=== PATIENT | female | born 1950 | race American Indian/Alaskan Native ===

== ENCOUNTER 2017-06-19 01:04 | Emergency (ER) | payer MEDICARE ==
[2017-06-19 01:24] VITALS: BP 138/74; RESP 16; TEMP 98; O2SAT 98
--- NOTE | 2017-06-19 02:47 | ED PDOC ---
HPI: Psych/Substance Abuse Time Seen by Provider: 06/19/17 01:43 Chief Complaint (Nursing): Palpitations Chief Complaint (Provider): Anxiety History Per: Patient History/Exam Limitations: no limitations Onset/Duration Of Symptoms: Mins ([employer]) Current Symptoms Are (Timing): Gone Now Suicide/Self Injury Attempted (Context): None Modifying Factor(s): None Additional Complaint(s): 67 year old female presents to ED with complaints of a resolved anxiety/panic attack that started [employer] and has a past medical history of anxiety, Hypertension , and arthritis. Patient states that she was overcome about her sister who was affected by the recent hurricane and her daughter's a few years ago, causing symptoms of an anxiety attack. (+) anxiety, diaphoresis, and palpitations. (-) chest pain. Patient confirms that upon arrival to ED, all symptoms have resolved. PCP: Adonis Dupree Past Medical History Reviewed: Historical Data, Nursing Documentation, Vital Signs Vital Signs: Last Vital Signs Temp 98 F 06/19/17 01:21 Pulse 87 06/19/17 01:21 Resp 16 06/19/17 01:21 BP 138/74 06/19/17 01:21 Pulse Ox 98 06/19/17 01:21 - Medical History PMH: Anxiety, Arthritis, HTN Denies: Chronic Kidney Disease - Social History Current smoker - smoking cessation education provided: No Ex-Smoker (has not smoked in the last 12 months): No Alcohol: Other ((+) drinker) Drugs: Denies - Home Medications Home Medications: Ambulatory Orders Medication Instructions Recorded Acetaminophen with Codeine 1 tab PO Q6 PRN #15 tab 07/30/15 [Tylenol with Codeine No. 3 300 mg-30 mg] Naproxen [Naprosyn] 500 mg PO BID #20 tab 07/30/15 - Allergies Allergies/Adverse Reactions: Allergies Allergy/AdvReac Type Severity Reaction Status Date / Time escitalopram [From Lexapro] Allergy RASH Verified 06/19/17 01:20 Review of Systems ROS Statement: Except As Marked, All Systems Reviewed And Found Negative Constitutional: Positive for: Sweats Cardiovascular: Positive for: Palpitations. Negative for: Chest Pain Psych: Positive for: Anxiety Physical Exam - Reviewed Nursing Documentation Reviewed: Yes Vital Signs Reviewed: Yes - Physical Exam Appears: Positive for: Non-toxic, No Acute Distress Head Exam: Positive for: ATRAUMATIC, NORMAL INSPECTION, NORMOCEPHALIC Skin: Positive for: Normal Color, Warm, Dry Eye Exam: Positive for: EOMI, Normal appearance, PERRL ENT: Positive for: Normal ENT Inspection Neck: Positive for: Normal, Painless ROM, Supple Cardiovascular/Chest: Positive for: Regular Rate, Rhythm. Negative for: Murmur Respiratory: Positive for: Normal Breath Sounds. Negative for: Respiratory Distress Gastrointestinal/Abdominal: Positive for: Normal Exam, Soft. Negative for: Tenderness Back: Positive for: Normal Inspection Extremity: Positive for: Normal ROM. Negative for: Deformity Neurologic/Psych: Positive for: Alert, Oriented - Laboratory Results Result Diagrams: 06/19/17 02:54 06/19/17 02:54 - ECG ECG Rhythm: Positive for: Sinus Rhythm Rate: 86 O2 Sat by Pulse Oximetry: 98 (RA) Pulse Ox Interpretation: Normal Medical Decision Making Medical Decision Makin Initial impression: anxiety Initial plan: * Labs * Trop I Patient refused crisis evaluation. [id number] Labs reviewed: no clinically significant abnormalities. Patient is medically stable for discharge. Scribe Attestation: Documented by Dalila Hilliard acting as a scribe for Buck Fernández MD. Scribe Attestation: All medical record entries made by the Scribe were at my direction and personally dictated by me. I have reviewed the chart and agree that the record accurately reflects my personal performance of the history, physical exam, medical decision making, and the department course for this patient. I have also personally directed, reviewed, and agree with the discharge instructions and disposition. Disposition - Clinical Impression Clinical Impression: Anxiety - Disposition Referrals: Adonis Dupree MD [Primary Care Provider] - Disposition: Routine/Home Disposition Time: 03:46 Condition: IMPROVED Additional Instructions: follow up with your primary doctor in 1-2 days return to the ED with any worsening or concerning symptoms Instructions: Anxiety (ED) Forms: [employer] (Swedish)
[2017-06-19 02:51] VITALS: PULSE 86
[2017-06-19 02:58] LABS: BASO % 0.8 % (0.0-2.0); EOS # 0.1 K/uL (0.0-0.7); EOS % 1.9 % (0.0-4.0); HEMATOCRIT 40.3 % (34.0-47.0); LYMPH # 2.1 K/uL (1.0-4.3); LYMPH % 35.3 % (20.0-40.0); MEAN CELL VOLUME 87.9 fl (81.0-99.0); MEAN CORPUSCULAR HEMOGLOBIN 28.6 pg (27.0-31.0); MEAN CORPUSCULAR HGB CONC 32.6 g/dL (33.0-37.0); MEAN PLATELET VOLUME 8.1 fl (7.2-11.7); MONO # 0.6 K/uL (0.0-0.8); MONO % 10.1 % (0.0-10.0); NEUT # 3.1 K/uL (1.8-7.0); NEUT % 51.9 % (50.0-75.0); NRBC % 0.1 % (0.0-0.0); RED CELL DISTRIBUTION WIDTH 14.8 % (11.5-14.5)
[2017-06-19 03:32] LABS: BLOOD UREA NITROGEN 14 mg/dl (7-17); GFR AFRICAN-AMERICAN > 60; GLUCOSE,RANDOM 103 mg/dL (65-105); SODIUM 143 mmol/l (132-148)
[2017-06-19 03:33] LABS: ALB/GLOB RATIO 1.3 (1.0-2.1); ALKALINE PHOSPHATASE 79 U/L (38-126); ALT/SGPT 41 U/L (9-52); AST/SGOT 29 U/L (14-36); BILIRUBIN,TOTAL 0.5 mg/dl (0.2-1.3); CALCIUM 9.8 mg/dL (8.4-10.2); CARBON DIOXIDE 28 mmol/L (22-30); CHLORIDE 104 mmol/L (98-107); POTASSIUM 4.3 MMOL/L (3.6-5.0); TOTAL PROTEIN 8.1 G/DL (6.3-8.2)
== END 2017-06-19 03:53 | disposition home or self-care (01) ==
LOC: H.ER 01:04
DX: F41.9 Anxiety disorder, unspecified (principal)

== ENCOUNTER 2017-12-12 22:33 | Emergency (ER) | payer MEDICARE ==
[2017-12-12 22:40] VITALS: BP 139/81; RESP 16; TEMP 98.3; O2SAT 98
[2017-12-12 23:49] LABS: BASO # 0.1 K/uL (0.0-0.2); BASO % 1.2 % (0.0-2.0); EOS # 0.1 K/uL (0.0-0.7); EOS % 1.2 % (0.0-4.0); HEMOGLOBIN 13.1 g/dL (12.0-16.0); LYMPH # 1.8 K/uL (1.0-4.3); LYMPH % 30.3 % (20.0-40.0); MEAN CELL VOLUME 87.3 fl (81.0-99.0); MEAN CORPUSCULAR HEMOGLOBIN 29.2 pg (27.0-31.0); MEAN CORPUSCULAR HGB CONC 33.5 g/dL (33.0-37.0); MEAN PLATELET VOLUME 7.5 fl (7.2-11.7); MONO # 0.5 K/uL (0.0-0.8); MONO % 7.6 % (0.0-10.0); NEUT # 3.6 K/uL (1.8-7.0); NEUT % 59.7 % (50.0-75.0); RBC 4.49 Mil/uL (3.80-5.20); RED CELL DISTRIBUTION WIDTH 14.9 % (11.5-14.5)
[2017-12-12 23:58] LABS: BLOOD UREA NITROGEN 12 mg/dl (7-17); CALCIUM 9.8 mg/dL (8.4-10.2); GFR AFRICAN-AMERICAN > 60; GFR NON-AFRICAN AMERICAN > 60
--- NOTE | 2017-12-13 00:09 | ED PDOC ---
HPI: Chest Pain Time Seen by Provider: 12/12/17 22:47 Chief Complaint (Nursing): Palpitations Chief Complaint (Provider): chest pain History Per: Patient History/Exam Limitations: no limitations Onset/Duration Of Symptoms: Days (12/12/17) Current Symptoms Are (Timing): Better Associated Symptoms: Other (left arm tingling and dry mouth) Additional Complaint(s): 67 y/o female with past medical history of hypertension, arthritis, and anxiety presents to the ED complaining of chest pain. Report of left arm tingling and dry mouth. Denies nausea and vomiting. PMD: Adonis Dupree Past Medical History Reviewed: Historical Data, Nursing Documentation, Vital Signs Vital Signs: Last Vital Signs Temp 98.3 F 12/12/17 22:37 Pulse 84 12/12/17 22:37 Resp 16 12/12/17 22:37 BP 139/81 12/12/17 22:37 Pulse Ox 98 12/13/17 01:05 - Medical History PMH: Anxiety, Arthritis, HTN Denies: Chronic Kidney Disease - Family History Family History: States: Unknown Family Hx - Home Medications Home Medications: Ambulatory Orders Medication Instructions Recorded Acetaminophen with Codeine 1 tab PO Q6 PRN #15 tab 07/30/15 [Tylenol with Codeine No. 3 300 mg-30 mg] Naproxen [Naprosyn] 500 mg PO BID #20 tab 07/30/15 - Allergies Allergies/Adverse Reactions: Allergies Allergy/AdvReac Type Severity Reaction Status Date / Time escitalopram [From Lexapro] Allergy RASH Verified 12/12/17 22:37 Review of Systems ROS Statement: Except As Marked, All Systems Reviewed And Found Negative ENT: Positive for: Other (dry mouth) Cardiovascular: Positive for: Chest Pain Gastrointestinal: Negative for: Nausea, Vomiting Musculoskeletal: Positive for: Other (left arm tingling and numbness) Physical Exam - Reviewed Nursing Documentation Reviewed: Yes Vital Signs Reviewed: Yes - Physical Exam Appears: Positive for: Well, Non-toxic, No Acute Distress Head Exam: Positive for: ATRAUMATIC, NORMAL INSPECTION, NORMOCEPHALIC Skin: Positive for: Normal Color, Warm, Dry Eye Exam: Positive for: EOMI, Normal appearance, PERRL ENT: Positive for: Normal ENT Inspection Neck: Positive for: Normal, Painless ROM, Supple. Negative for: Decreased ROM, Limited ROM Cardiovascular/Chest: Positive for: Regular Rate, Rhythm. Negative for: Murmur Respiratory: Positive for: Normal Breath Sounds. Negative for: Decreased Breath Sounds, Accessory Muscle Use, Wheezing, Respiratory Distress Gastrointestinal/Abdominal: Positive for: Normal Exam, Bowel Sounds, Soft. Negative for: Tenderness, Guarding, Rebound Back: Positive for: Normal Inspection. Negative for: L CVA Tenderness, R CVA Tenderness Extremity: Positive for: Normal ROM. Negative for: Tenderness, Pedal Edema, Deformity Neurologic/Psych: Positive for: Alert, Oriented (x3), Gait - Laboratory Results Result Diagrams: 12/12/17 23:46 12/12/17 23:46 - ECG O2 Sat by Pulse Oximetry: 98 (RA) Pulse Ox Interpretation: Normal Medical Decision Making Medical Decision Making: Time: 22:48 Initial Impression: 67 y/o female with acute anxiety Initial Plan: --EKG --BMP --Troponin I --CBC --Reevaluation Clinical Impression: Anxiety Upon provider evaluation patient is medically stable, and requires no further treatment in the ED at this time. Patient will be discharged. Counseling was provided and all questions were answered regarding diagnosis and need for follow up with PMD. There is agreement to discharge plan. Return if symptoms persist or worsen. Documented by Jillian Madera acting as a scribe for Walker Bhatti MD. All medical record entries made by the Scribe were at my direction and personally dictated by me. I have reviewed the chart and agree that the record accurately reflects my personal performance of the history, physical exam, medical decision making, and the department course for this patient. I have also personally directed, reviewed, and agree with the discharge instructions and disposition. Disposition - Clinical Impression Clinical Impression: Anxiety - Patient ED Disposition Is Patient to be Admitted: No - Disposition Disposition: Routine/Home Disposition Time: 01:04 Condition: STABLE Instructions: Anxiety, Adult (DC) Forms: [employer] (Malagasy)
[2017-12-13 04:50] VITALS: PULSE 83
--- NOTE | 2017-12-13 13:16 | CARD ---
APPROVED REPORT EKG Measurement Heart [id number] <Conclusion> Normal sinus rhythm Cannot rule out Anterior infarct, age undetermined Abnormal ECG
== END 2017-12-13 01:15 | disposition home or self-care (01) ==
LOC: H.ER 22:33
DX: F41.9 Anxiety disorder, unspecified (principal); I10 Essential (primary) hypertension

== ENCOUNTER 2018-03-23 14:19 | Observation (INO) | payer MEDICARE ==
--- NOTE | 2018-03-23 14:46 | ED PDOC ---
HPI: Chest Pain Time Seen by Provider: 03/23/18 14:32 Chief Complaint (Nursing): Chest Pain History Per: Patient Onset/Duration Of Symptoms: Days (2) Current Symptoms Are (Timing): Intermittent Episodes Severity: Mild Pain Scale Rating Of: 3 Quality: Tightness Modifying Factors: None Exacerbating Factors: None Additional Complaint(s): Chest tightness assoc with tingling left arm sine yesterday. Denies SOB or dizziness. Past Medical History Vital Signs: Last Vital Signs Temp 100.2 F H 03/23/18 14:24 Pulse 120 H 03/23/18 14:24 Resp 18 03/23/18 14:24 BP 156/79 H 03/23/18 14:24 Pulse Ox 100 03/23/18 14:46 - Medical History PMH: Anxiety, Arthritis, HTN Denies: Chronic Kidney Disease - Family History Family History: States: Unknown Family Hx - Home Medications Home Medications: Ambulatory Orders Medication Instructions Recorded Acetaminophen with Codeine 1 tab PO Q6 PRN #15 tab 07/30/15 [Tylenol with Codeine No. 3 300 mg-30 mg] Naproxen [Naprosyn] 500 mg PO BID #20 tab 07/30/15 - Allergies Allergies/Adverse Reactions: Allergies Allergy/AdvReac Type Severity Reaction Status Date / Time escitalopram [From Lexapro] Allergy RASH Verified 12/12/17 22:37 Review of Systems ROS Statement: Except As Marked, All Systems Reviewed And Found Negative Cardiovascular: Positive for: Chest Pain Musculoskeletal: Positive for: Other (Knee pain) Physical Exam - Reviewed Nursing Documentation Reviewed: Yes Vital Signs Reviewed: Yes - Physical Exam Appears: Positive for: Non-toxic, No Acute Distress Head Exam: Positive for: ATRAUMATIC, NORMAL INSPECTION, NORMOCEPHALIC Skin: Positive for: Normal Color, Warm, DRY Eye Exam: Positive for: EOMI, Normal appearance, PERRL ENT: Positive for: Normal ENT Inspection Neck: Positive for: Normal, Painless ROM Cardiovascular/Chest: Positive for: Regular Rate, Rhythm Respiratory: Positive for: CNT, Normal Breath Sounds Gastrointestinal/Abdominal: Positive for: Normal Exam, Soft Back: Positive for: Normal Inspection Extremity: Positive for: Swelling (Left knee ? effusion) Neurologic/Psych: Positive for: Alert, Oriented - Laboratory Results Result Diagrams: 03/23/18 15:00 03/23/18 15:00 - ECG O2 Sat by Pulse Oximetry: 100 Disposition - Clinical Impression Clinical Impression: Chest pain, Pneumonia - Patient ED Disposition Is Patient to be Admitted: Yes - Disposition Disposition Time: 16:18 Condition: FAIR Forms: [facility] (Upper Sorbian) - Pt Status Changed To: Hospital Disposition Of: Observation - POA Present On Arrival: None
[2018-03-23 15:07] LABS: BASO % 0.3 % (0.0-2.0); EOS % 0.5 % (0.0-4.0); HEMOGLOBIN 13.1 g/dL (12.0-16.0); LYMPH # 1.1 K/uL (1.0-4.3); LYMPH % 12.4 % (20.0-40.0); MEAN CELL VOLUME 88.7 fl (81.0-99.0); MEAN CORPUSCULAR HEMOGLOBIN 29.5 pg (27.0-31.0); MEAN CORPUSCULAR HGB CONC 33.3 g/dL (33.0-37.0); MEAN PLATELET VOLUME 8.3 fl (7.2-11.7); MONO # 0.7 K/uL (0.0-0.8); MONO % 8.1 % (0.0-10.0); NEUT # 6.8 K/uL (1.8-7.0); NEUT % 78.7 % (50.0-75.0); RBC 4.43 Mil/uL (3.80-5.20); RED CELL DISTRIBUTION WIDTH 14.3 % (11.5-14.5); WHITE BLOOD COUNT 8.6 K/uL (4.8-10.8)
--- NOTE | 2018-03-23 15:41 | RAD ---
PROCEDURE: Left Knee Radiographs. HISTORY: Pain. COMPARISON: None. FINDINGS: BONES: No acute fracture or destructive bony lesion identified. JOINTS: Marked joint space narrowing and cortical sclerosis of the medial femorotibial compartment is appreciate with even worse similar changes present at the patellofemoral articulation. Osteophytes are identified at the patellofemoral compartment and minimally at the lateral femorotibial compartment. JOINT EFFUSION: None. OTHER FINDINGS: None. IMPRESSION: No acute fracture or dislocation left knee. Relatively advanced osteoarthritis again noted left knee.
--- NOTE | 2018-03-23 15:43 | RAD ---
HISTORY: Chest pain COMPARISON: Portable chest 09/04/2013. TECHNIQUE: Chest PA and lateral FINDINGS: LUNGS: Interval patchy atelectasis or infiltrate is seen at medial bases bilaterally in the interval. PLEURA: No significant pleural effusion identified. No pneumothorax apparent. CARDIOVASCULAR: Cardiomegaly is reiterated. No definite pulmonary vascular congestion. OSSEOUS STRUCTURES: No significant abnormalities. VISUALIZED UPPER ABDOMEN: Normal. OTHER FINDINGS: Surgical clips are again seen the right axilla. IMPRESSION: Interval limited atelectasis or infiltrate bilateral medial bases. Stable cardiomegaly.
[2018-03-23 15:49] LABS: ALB/GLOB RATIO 1.1 (1.0-2.1); ALBUMIN 4.2 g/dL (3.5-5.0); ALT/SGPT 36 U/L (9-52); AST/SGOT 36 U/L (14-36); BLOOD UREA NITROGEN 13 mg/dl (7-17); CALCIUM 9.3 mg/dL (8.4-10.2); GFR AFRICAN-AMERICAN > 60; GFR NON-AFRICAN AMERICAN > 60
[2018-03-23] MEDS ORDERED: cefTRIAXone (Rocephin) 1 gm Inj ONE (16:14)
--- NOTE | 2018-03-23 17:28 | CP.PCM.HP ---
Addendum entered and electronically signed by Bethanie Rivera MD 03/23/18 20 :44: A: chronic left knee pain: left knee xray showed relatively advanced osteoarthritis P: pain management tylenol, toradol Original Note: <Bethanie Rivera - Last Filed: 03/23/18 20:02> History of Present Illness - History of Present Illness History of Present Illness: 67 yr old F presents to ED with complaint of chest pain and tingling of left arm since yesterday. Associated symptom is palpitations. Denies nausea, vomiting , sweating, SOB, dizziness, one sided weakness, difficulty swallowing, syncope or headaches, fevers or chills. PMHx includes anxiety, hypertension, GERD, arthritis, hx right breast cancer s/p lumpectomy. Patient reports she did not come sooner because she was waiting to go see her PMD. She has experienced these symptoms in the past, they usually resolve with clonazepam 0.5mg as needed , but this did not help this time. Patient associates her symptoms with thoughts of her only daughter whom a few years ago, also because it is fathers day and both her parents have . Patient also has complaint of worsening chronic left knee pain. PMD: Dr. Dupree Specialists: Dr. Abbott (orthopedics); Dr. Belle (psychologist) PMHx: anxiety, hypertension, GERD, arthritis, hx right breast cancer s/p lumpectomy SurgHx: left wrist fracture repair, right breast lumpectomy, umbilical hernia repair FMHx: mother at 70 yrs old from catheterization complications/CAD s/p stents, father at 42 yrs old-unknow cause of , sibling has hypertension SocHx: current smoker, denies Etoh or drugs Medications: Famotidine 40mg PO QD, Amlodipine 10mg PO QD, Metroprolol XL 50mg PO QD, Clonazepam 0.5mg PO TID PRN anxiety Allergies: Lexapro ED course: BP 156/79 mmHg, HR 120 bpm, Resp 18, O2 sat 100% on room air, Temp 100.2 F -EKG: sinus tachycardia with rate of 122 bpm with frequent premature ventricular complexes -CXR: interval limited atelectasis or infiltrate bilateral medial bases, stable cardiomegaly -CBC: WBC 8.6, H/H 13.1/39.3, plts 232 -CMP: Na 142, K+ 3.8, Cl 103, HCO3 25, anion gap 18, BUN 13/Cr 0.8, eGFR > 60 -AST 36, ALT 36, alk phos 73 -troponin: < 0.0120 -urinalysis negative -blood culture -ED treatment: Aspirin 325mg PO once, Ceftriaxone 1gm IVPB once Present on Admission - Present on Admission Any Indicators Present on Admission: No History of DVT/PE: No History of Uncontrolled Diabetes: No Urinary Catheter: No Decubitus Ulcer Present: No History Surgical Site Infection Following: None Review of Systems - Constitutional Constitutional: absent: Chills - EENT Eyes: absent: Blurred Vision Ears: absent: Ear Pain, Disequilibrium, Dizziness Nose/Mouth/Throat: absent: Nasal Congestion, Nasal Discharge, Sore Throat - Cardiovascular Cardiovascular: Chest Pain, Palpitations. absent: Dyspnea, Syncope - Respiratory Respiratory: absent: Cough, Dyspnea - Gastrointestinal Gastrointestinal: absent: Abdominal Pain, Constipation, Nausea, Vomiting - Genitourinary Genitourinary: absent: Difficulty Urinating, Dysuria - Musculoskeletal Musculoskeletal: Other (left knee pain) - Integumentary Integumentary: Other. absent: Rash, Sores, Wounds - Neurological Neurological: absent: Confusion, Dizziness, Weakness - Psychiatric Psychiatric: Anxiety. absent: Homicidal Ideation, Suicidal Ideation - Endocrine Endocrine: absent: Polydipsia, Polyphagia, Polyuria - Hematologic/Lymphatic Hematologic: absent: Easy Bleeding, Easy Bruising Past Patient History - Past Social History Smoking Status: Never Smoked - CARDIAC Hx Hypertension: Yes - PULMONARY Hx Respiratory Disorders: No - NEUROLOGICAL Hx Neurological Disorder: No - HEENT Hx HEENT Problems: No - RENAL Hx Chronic Kidney Disease: No - ENDOCRINE/METABOLIC Hx Endocrine Disorders: No - HEMATOLOGICAL/ONCOLOGICAL Hx Blood Disorders: Yes Hx Cancer: Yes (R Breast) - INTEGUMENTARY Hx Dermatological Problems: No - MUSCULOSKELETAL/RHEUMATOLOGICAL Hx Arthritis: Yes - GASTROINTESTINAL Hx Gastrointestinal Disorders: No - GENITOURINARY/GYNECOLOGICAL Hx Genitourinary Disorders: No - PSYCHIATRIC Hx Anxiety: Yes - SURGICAL HISTORY Hx Surgeries: Yes Other/Comment: Right breast reconstruction - ANESTHESIA Hx Anesthesia: Yes Hx Anesthesia Reactions: No Hx Malignant Hyperthermia: No Meds Allergies/Adverse Reactions: Allergies Allergy/AdvReac Type Severity Reaction Status Date / Time escitalopram [From Lexapro] Allergy RASH Verified 12/12/17 22:37 Physical Exam - Constitutional Appears: No Acute Distress - Head Exam Head Exam: ATRAUMATIC, NORMOCEPHALIC - Eye Exam Eye Exam: EOMI, PERRL - ENT Exam ENT Exam: Mucous Membranes Moist - Neck Exam Neck exam: Positive for: Full Rom. Negative for: Lymphadenopathy - Respiratory Exam Respiratory Exam: Clear to Auscultation Bilateral, NORMAL BREATHING PATTERN. absent: Rales, Rhonchi - Cardiovascular Exam Cardiovascular Exam: REGULAR RHYTHM, +S1, +S2 - GI/Abdominal Exam GI & Abdominal Exam: Normal Bowel Sounds, Soft (obese) - Extremities Exam Extremities exam: Positive for: full ROM, normal capillary refill, pedal pulses present. Negative for: pedal edema, tenderness - Back Exam Back exam: absent: CVA tenderness (L), CVA tenderness (R) - Neurological Exam Neurological exam: Alert, CN II-XII Intact (grossly intact), Oriented x3 - Psychiatric Exam Psychiatric exam: Anxious, Depressed - Skin Skin Exam: Dry, Intact, Normal Color, Warm Additional comments: multiple hyperpimented healed scars in bilateral lower extremities (patient reports they were inflicted by her cat) Results - Vital Signs Recent Vital Signs: Last Vital Signs Temp 100.2 F H 03/23/18 14:24 Pulse 120 H 03/23/18 14:24 Resp 18 03/23/18 14:24 BP 156/79 H 03/23/18 14:24 Pulse Ox 100 03/23/18 16:18 - Labs Result Diagrams: 03/23/18 15:00 03/23/18 15:00 Labs: Laboratory Results - last 24 hr 03/23/18 03/23/18 15:00 15:00 WBC 8.6 RBC 4.43 Hgb 13.1 Hct 39.3 MCV 88.7 MCH 29.5 MCHC 33.3 RDW 14.3 Plt Count 232 MPV 8.3 Neut % (Auto) 78.7 H Lymph % (Auto) 12.4 L Rogers % (Auto) 8.1 Eos % (Auto) 0.5 Baso % (Auto) 0.3 Neut # (Auto) 6.8 Lymph # (Auto) 1.1 Rogers # (Auto) 0.7 Eos # (Auto) 0.0 Baso # (Auto) 0.0 Sodium 142 Potassium 3.8 Chloride 103 Carbon Dioxide 25 Anion Gap 18 BUN 13 Creatinine 0.8 Est GFR ( Amer) > 60 Est GFR (Non-Af Amer) > 60 Random Glucose 108 H Calcium 9.3 Total Bilirubin 1.1 AST 36 D ALT 36 Alkaline Phosphatase 73 Troponin I < 0.0120 Total Protein 7.9 Albumin 4.2 Globulin 3.7 Albumin/Globulin Ratio 1.1 Assessment & Plan - Assessment and Plan (Free Text) Assessment: 67 yr old F admitted for chest pain and pneumonia with PMHx including hyertension, anxiety, GERD, arthritis, hx right breast cancer s/p lumpectomy 1. Chest pain -acute, recurrent, r/o ACS vs anxiety -EKG: sinus tachycardia with rate of 122 bpm with frequent premature ventricular complexes -troponin: < 0.0120 -admit to telemetry -color television console monitor, heart healthy diet -f/u serial troponins -consider cardiology consult 2. Pneumonia -acute, community acquired, -CXR: interval limited atelectasis or infiltrate bilateral medial bases, stable cardiomegaly -elevated temp 100.2 F on admission -Ceftriaxone 1gm IV QD 3. Hypertension -chronic, controlled -continue home medications: Amlodipine 10mg PO QD, Metroprolol XL 50mg PO QD -monitor BP 4. Anxiety -acute on chronic -continue home medications: Clonazepam 0.5mg PO TID PRN anxiety 5. GERD -chronic, controlled -Famotidine 40mg PO QD 6. DVT prophylaxis -Lovenox 40 mg SC QD - Date & Time Date: 03/23/18 Time: 17:30 <Adonis Dupree - Last Filed: 03/24/18 06:47> Results - Vital Signs Recent Vital Signs: Last Vital Signs Temp 98.4 F 03/24/18 04:10 Pulse 82 03/24/18 04:10 Resp 19 03/24/18 04:10 BP 115/64 03/24/18 04:10 Pulse Ox 95 03/24/18 04:10 - Labs Result Diagrams: 03/23/18 15:00 03/23/18 15:00 Labs: Laboratory Results - last 24 hr 03/23/18 03/23/18 03/23/18 15:00 15:00 18:50 WBC 8.6 RBC 4.43 Hgb 13.1 Hct 39.3 MCV 88.7 MCH 29.5 MCHC 33.3 RDW 14.3 Plt Count 232 MPV 8.3 Neut % (Auto) 78.7 H Lymph % (Auto) 12.4 L Rogers % (Auto) 8.1 Eos % (Auto) 0.5 Baso % (Auto) 0.3 Neut # (Auto) 6.8 Lymph # (Auto) 1.1 Rogers # (Auto) 0.7 Eos # (Auto) 0.0 Baso # (Auto) 0.0 Sodium 142 Potassium 3.8 Chloride 103 Carbon Dioxide 25 Anion Gap 18 BUN 13 Creatinine 0.8 Est GFR ( Amer) > 60 Est GFR (Non-Af Amer) > 60 Random Glucose 108 H Calcium 9.3 Total Bilirubin 1.1 AST 36 D ALT 36 Alkaline Phosphatase 73 Troponin I < 0.0120 Total Protein 7.9 Albumin 4.2 Globulin 3.7 Albumin/Globulin Ratio 1.1 Urine Color Yellow Urine Clarity Cloudy Urine pH 5.0 Ur Specific Taft 1.028 Urine Protein 30 Urine Glucose (UA) Neg Urine Ketones Negative Urine Blood Negative Urine Nitrate Negative Urine Bilirubin Negative Urine Urobilinogen 0.2-1.0 Ur Leukocyte Esterase Neg Urine RBC (Auto) 2 Urine Microscopic WBC 2 Ur Squamous Epith Cells 1 Urine Bacteria Rare 03/23/18 03/23/18 23:30 23:30 WBC RBC Hgb Hct MCV MCH MCHC RDW Plt Count MPV Neut % (Auto) Lymph % (Auto) Rogers % (Auto) Eos % (Auto) Baso % (Auto) Neut # (Auto) Lymph # (Auto) Rogers # (Auto) Eos # (Auto) Baso # (Auto) Sodium Potassium Chloride Carbon Dioxide Anion Gap BUN Creatinine Est GFR ( Amer) Est GFR (Non-Af Amer) Random Glucose Calcium Total Bilirubin AST ALT Alkaline Phosphatase Troponin I < 0.0120 Total Protein Albumin Globulin Albumin/Globulin Ratio Urine Color Yellow Urine Clarity Clear Urine pH 7.0 Ur Specific Taft 1.011 Urine Protein Negative Urine Glucose (UA) Neg Urine Ketones Negative Urine Blood Negative Urine Nitrate Negative Urine Bilirubin Negative Urine Urobilinogen 0.2-1.0 Ur Leukocyte Esterase Neg Urine RBC (Auto) 1 Urine Microscopic WBC < 1 Ur Squamous Epith Cells < 1 Urine Bacteria Attending/Attestation - Attestation I have personally seen and examined this patient.: Yes I have fully participated in the care of the patient.: Yes I have reviewed all pertinent clinical information: Yes
[2018-03-23 19:02] LABS: SQUAMOUS EPITHIAL 1 /hpf (0-5); URINE BACTERIA RARE (<OCC); URINE BILIRUBIN NEGATIVE (NEGATIVE); URINE BLOOD NEGATIVE (NEGATIVE); URINE CLARITY CLOUDY (Clear); URINE COLOR YELLOW (YELLOW); URINE GLUCOSE (UA) NEG (Normal); URINE LEUKOCYTE ESTERASE NEG Leu/uL (Negative); URINE PROTEIN 30 mg/dL (NEGATIVE); URINE UROBILINOGEN 0.2-1.0 mg/dL (0.2-1.0)
[2018-03-23 23:41] LABS: SQUAMOUS EPITHIAL < 1 /hpf (0-5); URINE BILIRUBIN NEGATIVE (NEGATIVE); URINE BLOOD NEGATIVE (NEGATIVE); URINE CLARITY CLEAR (Clear); URINE COLOR YELLOW (YELLOW); URINE GLUCOSE (UA) NEG (Normal); URINE LEUKOCYTE ESTERASE NEG Leu/uL (Negative); URINE PROTEIN NEGATIVE (NEGATIVE); URINE UROBILINOGEN 0.2-1.0 mg/dL (0.2-1.0)
[2018-03-24] MEDS: Enoxaparin 40 mg Syringe SC SCH (08:44)
--- NOTE | 2018-03-24 09:05 | RAD ---
HISTORY: chest pain COMPARISON: Chest radiographs 03/23/2018. TECHNIQUE: Chest PA and lateral FINDINGS: LUNGS: Improved inspiratory effort is noted and limited crowding of the bronchovascular markings at the right base is appreciate without infiltrate. No left basilar infiltrate or atelectasis in the interval either. PLEURA: No significant pleural effusion identified. No pneumothorax apparent. CARDIOVASCULAR: Stable cardiac silhouette without definite pulmonary vascular congestion. OSSEOUS STRUCTURES: No significant abnormalities. VISUALIZED UPPER ABDOMEN: Normal. OTHER FINDINGS: Postoperative changes again seen at the right axilla. IMPRESSION: Improved history volume is noted with limited crowding of the right kunal right basilar bronchovascular markings. No infiltrate bilaterally or pleural effusion.
--- NOTE | 2018-03-24 09:35 | CARD ---
APPROVED REPORT EKG Measurement Heart [id number] <Conclusion> Sinus rhythm with occasional premature ventricular complexes Low voltage QRS ST & T wave abnormality, consider anterior ischemia Prolonged QT Abnormal ECG
--- NOTE | 2018-03-24 10:09 | CP.PCM.PN ---
<Kaya Barksdale - Last Filed: 03/24/18 10:13> Subjective - Date & Time of Evaluation Date of Evaluation: 03/24/18 Time of Evaluation: 10:07 - Subjective Subjective: No acute overnight events. Pt states that she feels better, chest pain has improved. Endorsing some leg pain which she contributes to arthritis. Objective - Vital Signs/Intake and Output Vital Signs (last 24 hours): Temp Pulse Resp BP Pulse Ox 98.1 F 97 H 19 127/64 93 L 03/24/18 08:00 03/24/18 09:00 03/24/18 06:00 03/24/18 08:40 03/24/18 06:00 Intake and Output: 03/24/18 03/24/18 06:59 18:59 Intake Total 260 Output Total 300 Balance -40 - Medications Medications: Current Medications Acetaminophen (Tylenol 325mg Tab) 650 mg PO Q6 PRN PRN Reason: Pain, moderate (4-7) Amlodipine Besylate (Norvasc) 10 mg PO DAILY [facility] Last Admin: 03/24/18 08:40 Dose: 10 mg Aspirin (Aspirin Chewable) 81 mg PO DAILY [facility] Last Admin: 03/24/18 08:39 Dose: 81 mg Clonazepam (Klonopin) 0.5 mg PO TID PRN PRN Reason: Anxiety Last Admin: 03/24/18 08:45 Dose: 0.5 mg Enoxaparin Sodium (Lovenox) 40 mg SC DAILY [facility] PRN Reason: Protocol Last Admin: 03/24/18 08:44 Dose: Not Given Famotidine (Pepcid) 40 mg PO DAILY [facility] Last Admin: 03/24/18 08:42 Dose: 40 mg Ketorolac Tromethamine (Toradol) 30 mg IVP Q6 PRN PRN Reason: Pain, severe (8-10) Last Admin: 03/24/18 07:56 Dose: 30 mg Metoprolol Succinate (Toprol Xl) 50 mg PO DAILY [facility] - Labs Labs: 03/23/18 15:00 03/23/18 15:00 - Constitutional Appears: No Acute Distress - Head Exam Head Exam: NORMAL INSPECTION - Eye Exam Eye Exam: EOMI, Normal appearance - ENT Exam ENT Exam: Mucous Membranes Moist - Respiratory Exam Respiratory Exam: Clear to Ausculation Bilateral, NORMAL BREATHING PATTERN. absent: Wheezes - Cardiovascular Exam Cardiovascular Exam: REGULAR RHYTHM, +S1, +S2 Additional comments: tenderness to palpation of the mediastinum - GI/Abdominal Exam GI & Abdominal Exam: Soft, Normal Bowel Sounds. absent: Tenderness - Extremities Exam Extremities Exam: absent: Calf Tenderness, Pedal Edema - Neurological Exam Neurological Exam: Alert, Awake, Oriented x3 - Psychiatric Exam Psychiatric exam: Normal Affect, Normal Mood - Skin Skin Exam: Dry, Intact, Normal Color, Warm Assessment and Plan - Assessment and Plan (Free Text) Assessment: Assessment: 67 YO Female PMHx including HTN, anxiety, GERD, arthritis, hx right breast cancer s/p lumpectomy admitted for chest pain and pneumonia. Subsequent imaging did not show pneumonia. Chest Pain -improved -likely Costochondritis, tenderness to palpation -Trops x 3 neg -EKG with T wave changes different from last admission -CXR: interval limited atelectasis or infiltrate bilateral medial bases, stable cardiomegaly -Repeat 2 view CXR today no pneumonia or acute changes -chest pain not from pneumonia -s/p -Ceftriaxone 1gm in ED -cardiology consulted; Echo and obs pt for another day; follow up -will start Motrin for pain -echo pending Hypertension -chronic, controlled -continue home medications: Amlodipine 10mg PO QD, Metroprolol XL 50mg PO QD -monitor BP Anxiety -acute on chronic -continue home medications: Clonazepam 0.5mg PO TID PRN anxiety GERD -chronic, controlled -Famotidine 40mg PO QD DVT prophylaxis -Lovenox 40 mg SC QD <Adonis Dupree - Last Filed: 03/25/18 06:48> Objective - Vital Signs/Intake and Output Vital Signs (last 24 hours): Temp Pulse Resp BP Pulse Ox 98.1 F 67 14 100/47 L 97 03/25/18 04:30 03/25/18 04:30 03/25/18 04:30 03/25/18 04:30 03/25/18 04:30 Intake and Output: 03/24/18 03/25/18 18:59 06:59 Intake Total 280 60 Balance 280 60 - Medications Medications: Current Medications Acetaminophen (Tylenol 325mg Tab) 650 mg PO Q6 PRN PRN Reason: Pain, moderate (4-7) Amlodipine Besylate (Norvasc) 10 mg PO DAILY [facility] Last Admin: 03/24/18 08:40 Dose: 10 mg Aspirin (Aspirin Chewable) 81 mg PO DAILY [facility] Last Admin: 03/24/18 08:39 Dose: 81 mg Clonazepam (Klonopin) 0.5 mg PO TID PRN PRN Reason: Anxiety Last Admin: 03/24/18 20:25 Dose: 0.5 mg Enoxaparin Sodium (Lovenox) 40 mg SC DAILY [facility] PRN Reason: Protocol Last Admin: 03/24/18 08:44 Dose: Not Given Famotidine (Pepcid) 40 mg PO DAILY [facility] Last Admin: 03/24/18 08:42 Dose: 40 mg Ibuprofen (Motrin Tab) 600 mg PO Q6 [facility] Last Admin: 03/25/18 04:30 Dose: Not Given Ketorolac Tromethamine (Toradol) 30 mg IVP Q6 PRN PRN Reason: Pain, severe (8-10) Last Admin: 03/24/18 07:56 Dose: 30 mg Metoprolol Succinate (Toprol Xl) 50 mg PO DAILY [facility] Last Admin: 03/24/18 17:16 Dose: 50 mg - Labs Labs: 03/25/18 04:20 03/25/18 04:20 Attending/Attestation - Attestation I have personally seen and examined this patient.: Yes I have fully participated in the care of the patient.: Yes I have reviewed all pertinent clinical information, including history, physical exam and plan: Yes
--- NOTE | 2018-03-24 11:05 | US ---
HISTORY: calf pain and swelling . PRIORS: Comparison made with prior left lower extremity DVT study 07/30/2015 FINDINGS: 2-D, color and duplex Doppler analysis of the lower extremity venous circulation using routine protocol from the femoral veins through the popliteal veins. Venous compressibility: Normal. Flow and augmentation patterns: Normal. Visualized veins upper third of calf: Normal. Vance cyst: None. IMPRESSION: No sonographic or Doppler evidence for DVT in left lower extremity.
--- NOTE | 2018-03-24 12:17 | CP.PCM.CON ---
History of Present Illness - History of Present Illness History of Present Illness: THE PATIENT IS A 67 YEAR OLD FEMALE WHO HAS A HISTORY OF HYPERTENSION,ANXIETY, ARTHRITIS AND HAD A RIGHT BREAST LUMPECTOMY FOR CANCER. SHE HAD CHEST PAIN AND LEFT ARM TINGLING YESTERDAY AND WAS BROUGHT TO THE ER AND WAS ADMITTED. CARDIOLOGY WAS ASKED TO SEE HER. SHE IS CHEST PAIN FREE NOW. SHE CLAIMS THE CHEST PAIN WAS A TIGHTNESS. SHE DENIES ANY KNOWN CARDIAC PROBLEMS SUCH CAD. Past Patient History - Past Medical History & Family History Past Medical History?: Yes - Past Social History Smoking Status: Never Smoked - CARDIAC Hx Hypertension: Yes - PULMONARY Hx Respiratory Disorders: No - NEUROLOGICAL Hx Neurological Disorder: No - HEENT Hx HEENT Problems: No - RENAL Hx Chronic Kidney Disease: No - ENDOCRINE/METABOLIC Hx Endocrine Disorders: No - HEMATOLOGICAL/ONCOLOGICAL Hx Blood Disorders: Yes - INTEGUMENTARY Hx Dermatological Problems: No - MUSCULOSKELETAL/RHEUMATOLOGICAL Hx Arthritis: Yes Hx Falls: No Hx Fractures: Yes (Right wrist FX 25 years ago) - GASTROINTESTINAL Hx Gastrointestinal Disorders: No Hx Gastroesophageal Reflux: Yes - GENITOURINARY/GYNECOLOGICAL Hx Genitourinary Disorders: No - PSYCHIATRIC Hx Anxiety: Yes Hx Substance Use: No - SURGICAL HISTORY Hx Surgeries: Yes Hx Breast Biopsy: Yes Hx Herniorrhaphy: Yes (Umbicall hernia repair at age 11) Hx Tonsillectomy: Yes (3 years old) Other/Comment: Right breast reconstruction - ANESTHESIA Hx Anesthesia: Yes Hx Anesthesia Reactions: No Hx Malignant Hyperthermia: No Has any member of the family had a problem w/ anesthesia?: No Meds Allergies/Adverse Reactions: Allergies Allergy/AdvReac Type Severity Reaction Status Date / Time escitalopram [From Lexapro] Allergy RASH Verified 12/12/17 22:37 - Medications Medications: Current Medications Acetaminophen (Tylenol 325mg Tab) 650 mg PO Q6 PRN PRN Reason: Pain, moderate (4-7) Amlodipine Besylate (Norvasc) 10 mg PO DAILY [facility] Last Admin: 03/24/18 08:40 Dose: 10 mg Aspirin (Aspirin Chewable) 81 mg PO DAILY [facility] Last Admin: 03/24/18 08:39 Dose: 81 mg Clonazepam (Klonopin) 0.5 mg PO TID PRN PRN Reason: Anxiety Last Admin: 03/24/18 08:45 Dose: 0.5 mg Enoxaparin Sodium (Lovenox) 40 mg SC DAILY [facility] PRN Reason: Protocol Last Admin: 03/24/18 08:44 Dose: Not Given Famotidine (Pepcid) 40 mg PO DAILY [facility] Last Admin: 03/24/18 08:42 Dose: 40 mg Ibuprofen (Motrin Tab) 600 mg PO Q6 [facility] Ketorolac Tromethamine (Toradol) 30 mg IVP Q6 PRN PRN Reason: Pain, severe (8-10) Last Admin: 03/24/18 07:56 Dose: 30 mg Metoprolol Succinate (Toprol Xl) 50 mg PO DAILY [facility] Physical Exam - Respiratory Exam Respiratory Exam: Clear to Auscultation Bilateral - Cardiovascular Exam Cardiovascular Exam: REGULAR RHYTHM, +S1, +S2 Additional comments: CHEST WALL PALPATION REPRODUCED CHEST PAIN BUT IT WAS DIFFERENT FROM THE CHEST TIGHTNESS THAT BROUGHT HER TO THE ER - Additional Findings Additional findings: EKG SINUS RHYTHM, T WAVE INVERSIONS IN THE CHEST LEADS CXR CHRONIC CHANGES TROPONINS NEGATIVE X 3 Results - Vital Signs Recent Vital Signs: Last Vital Signs Temp 98.1 F 03/24/18 08:00 Pulse 97 H 03/24/18 09:00 Resp 19 03/24/18 06:00 BP 127/64 03/24/18 08:40 Pulse Ox 93 L 03/24/18 06:00 - Labs Result Diagrams: 03/23/18 15:00 03/23/18 15:00 Labs: Laboratory Results - last 24 hr 03/23/18 03/23/18 03/23/18 15:00 15:00 18:50 WBC 8.6 RBC 4.43 Hgb 13.1 Hct 39.3 MCV 88.7 MCH 29.5 MCHC 33.3 RDW 14.3 Plt Count 232 MPV 8.3 Neut % (Auto) 78.7 H Lymph % (Auto) 12.4 L Ceiba % (Auto) 8.1 Eos % (Auto) 0.5 Baso % (Auto) 0.3 Neut # (Auto) 6.8 Lymph # (Auto) 1.1 Ceiba # (Auto) 0.7 Eos # (Auto) 0.0 Baso # (Auto) 0.0 Sodium 142 Potassium 3.8 Chloride 103 Carbon Dioxide 25 Anion Gap 18 BUN 13 Creatinine 0.8 Est GFR ( Amer) > 60 Est GFR (Non-Af Amer) > 60 Random Glucose 108 H Calcium 9.3 Total Bilirubin 1.1 AST 36 D ALT 36 Alkaline Phosphatase 73 Troponin I < 0.0120 Total Protein 7.9 Albumin 4.2 Globulin 3.7 Albumin/Globulin Ratio 1.1 Urine Color Yellow Urine Clarity Cloudy Urine pH 5.0 Ur Specific Morgan 1.028 Urine Protein 30 Urine Glucose (UA) Neg Urine Ketones Negative Urine Blood Negative Urine Nitrate Negative Urine Bilirubin Negative Urine Urobilinogen 0.2-1.0 Ur Leukocyte Esterase Neg Urine RBC (Auto) 2 Urine Microscopic WBC 2 Ur Squamous Epith Cells 1 Urine Bacteria Rare 03/23/18 03/23/18 03/24/18 23:30 23:30 08:15 WBC RBC Hgb Hct MCV MCH MCHC RDW Plt Count MPV Neut % (Auto) Lymph % (Auto) Ceiba % (Auto) Eos % (Auto) Baso % (Auto) Neut # (Auto) Lymph # (Auto) Ceiba # (Auto) Eos # (Auto) Baso # (Auto) Sodium Potassium Chloride Carbon Dioxide Anion Gap BUN Creatinine Est GFR ( Amer) Est GFR (Non-Af Amer) Random Glucose Calcium Total Bilirubin AST ALT Alkaline Phosphatase Troponin I < 0.0120 < 0.0120 Total Protein Albumin Globulin Albumin/Globulin Ratio Urine Color Yellow Urine Clarity Clear Urine pH 7.0 Ur Specific Morgan 1.011 Urine Protein Negative Urine Glucose (UA) Neg Urine Ketones Negative Urine Blood Negative Urine Nitrate Negative Urine Bilirubin Negative Urine Urobilinogen 0.2-1.0 Ur Leukocyte Esterase Neg Urine RBC (Auto) 1 Urine Microscopic WBC < 1 Ur Squamous Epith Cells < 1 Urine Bacteria Assessment & Plan - Assessment and Plan (Free Text) Assessment: CHEST PAIN- ONE CHEST PAIN WAS TYPICAL IN NATURE AND THE OTHER IS CHEST WALL TENDERNESS HYPERTENSION ANXIETY Plan: I SPOKE TO DR BERNABE AND IN LIGHT OF HER CHEST TIGHTNESS AND ABNORMAL EKG I RECOMMENDED THAT SHE STAY ONE MORE NIGHT AND DO AN ECHOCARDIOGRAM AND HAVE A PHARMACOLOGICAL STRESS TEST IN THE AM CONTINUE ASPIRIN, LOVENOX, METOPROLOL AND AND AMLODIPINE LIPID PROFILE IN AM
[2018-03-24] MEDS: Metoprolol Succinate 50 mg XL Tab PO SCH (17:16)
[2018-03-25 01:10] VITALS: O2SAT 97
[2018-03-25 05:38] LABS: BASO % 0.6 % (0.0-2.0); EOS # 0.1 K/uL (0.0-0.7); HEMOGLOBIN 12.3 g/dL (12.0-16.0); LYMPH # 1.6 K/uL (1.0-4.3); LYMPH % 29.6 % (20.0-40.0); MEAN CELL VOLUME 89.1 fl (81.0-99.0); MEAN CORPUSCULAR HEMOGLOBIN 29.8 pg (27.0-31.0); MEAN CORPUSCULAR HGB CONC 33.5 g/dL (33.0-37.0); MEAN PLATELET VOLUME 8.4 fl (7.2-11.7); MONO # 0.7 K/uL (0.0-0.8); MONO % 12.4 % (0.0-10.0); NEUT # 3.1 K/uL (1.8-7.0); NEUT % 55.4 % (50.0-75.0); RBC 4.13 Mil/uL (3.80-5.20); RED CELL DISTRIBUTION WIDTH 14.2 % (11.5-14.5); WHITE BLOOD COUNT 5.5 K/uL (4.8-10.8)
[2018-03-25 05:39] LABS: BLOOD UREA NITROGEN 13 mg/dl (7-17); CALCIUM 8.9 mg/dL (8.4-10.2); GFR AFRICAN-AMERICAN > 60; GFR NON-AFRICAN AMERICAN > 60; HDL CHOLESTEROL 32 MG/DL (30-70)
[2018-03-25 05:49] LABS: LDL CHOLESTEROL 128 mg/dL (0-129)
--- NOTE | 2018-03-25 07:52 | CARD ---
APPROVED REPORT EXAM: Two-dimensional and M-mode echocardiogram with Doppler and color Doppler. Other Information Quality : GoodRhythm : PVC's INDICATION Chest Pain 2D DIMENSIONS IVSd0.97 (0.7-1.1cm)LVDd5.02 (3.9-5.9cm) LVOT Diameter2.01 (1.8-2.4cm)PWd0.95 (0.7-1.1cm) IVSs1.41 (0.8-1.2cm)LVDs3.15 (2.5-4.0cm) FS (%) 37.1 %PWs1.26 (0.8-1.2cm) M-Mode DIMENSIONS Left Atrium (MM)3.03 (2.5-4.0cm)IVSd1.47 (0.7-1.1cm) Aortic Root3.06 (2.2-3.7cm)LVDd4.71 (4.0-5.6cm) Aortic Cusp Exc.1.88 (1.5-2.0cm)PWd1.06 (0.7-1.1cm) IVSs1.47 cmFS (%) 41 % LVDs2.79 (2.0-3.8cm)PWs1.35 cm Mitral Valve E/A ratio0.0 TDI E/Lateral E'0.0E/Medial E'0.0 Pulmonary Valve PV Peak [id number]/s LEFT VENTRICLE The left ventricle is normal size. There is normal left ventricular wall thickness. Left ventricle systolic function is normal. The Ejection Fraction is 60-65%. There is normal LV segmental wall motion. Transmitral Doppler flow pattern is Grade I-abnormal relaxation pattern. RIGHT VENTRICLE The right ventricle is normal size. There is normal right ventricular wall thickness. The right ventricular systolic function is normal. ATRIA The left atrium size is normal. The right atrium size is normal. AORTIC VALVE The aortic valve is normal in structure. No aortic regurgitation is present. There is no aortic valvular stenosis. MITRAL VALVE The mitral valve is normal in structure. There is no evidence of mitral valve prolapse. There is no mitral valve stenosis. There is no mitral valve regurgitation noted. TRICUSPID VALVE The tricuspid valve is normal in structure. There is no tricuspid valve regurgitation noted. PULMONIC VALVE The pulmonary valve is normal in structure. There is no pulmonic valvular regurgitation. GREAT VESSELS The aortic root is normal in size. The IVC is normal in size and collapses >50% with inspiration. PERICARDIAL EFFUSION There is a small circumferential pericardial effusion. <Conclusion> The echo images were poor in quality due to a poor echo window. The left ventricle is normal size. There is normal left ventricular wall thickness. There is normal LV segmental wall motion. Left ventricle systolic function is normal. The Ejection Fraction is 60-65%. Transmitral Doppler flow pattern is Grade I-abnormal relaxation pattern.
--- NOTE | 2018-03-25 09:40 | CP.PCM.PN ---
Subjective - Date & Time of Evaluation Date of Evaluation: 03/25/18 Time of Evaluation: 08:00 - Subjective Subjective: NO CHEST PAIN OR SOB AT THIS TIME Objective - Vital Signs/Intake and Output Vital Signs (last 24 hours): Temp Pulse Resp BP Pulse Ox 97.9 F 67 14 100/47 L 97 03/25/18 08:00 03/25/18 04:30 03/25/18 04:30 03/25/18 04:30 03/25/18 04:30 Intake and Output: 03/25/18 03/25/18 06:59 18:59 Intake Total 60 Balance 60 - Medications Medications: Current Medications Acetaminophen (Tylenol 325mg Tab) 650 mg PO Q6 PRN PRN Reason: Pain, moderate (4-7) Amlodipine Besylate (Norvasc) 10 mg PO DAILY [facility] Last Admin: 03/24/18 08:40 Dose: 10 mg Aspirin (Aspirin Chewable) 81 mg PO DAILY [facility] Last Admin: 03/24/18 08:39 Dose: 81 mg Clonazepam (Klonopin) 0.5 mg PO TID PRN PRN Reason: Anxiety Last Admin: 03/24/18 20:25 Dose: 0.5 mg Enoxaparin Sodium (Lovenox) 40 mg SC DAILY [facility] PRN Reason: Protocol Last Admin: 03/24/18 08:44 Dose: Not Given Famotidine (Pepcid) 40 mg PO DAILY [facility] Last Admin: 03/24/18 08:42 Dose: 40 mg Ibuprofen (Motrin Tab) 600 mg PO Q6 [facility] Last Admin: 03/25/18 04:30 Dose: Not Given Ketorolac Tromethamine (Toradol) 30 mg IVP Q6 PRN PRN Reason: Pain, severe (8-10) Last Admin: 03/24/18 07:56 Dose: 30 mg Metoprolol Succinate (Toprol Xl) 50 mg PO DAILY [facility] Last Admin: 03/24/18 17:16 Dose: 50 mg - Labs Labs: 03/25/18 04:20 03/25/18 04:20 - Respiratory Exam Respiratory Exam: Clear to Ausculation Bilateral - Cardiovascular Exam Cardiovascular Exam: REGULAR RHYTHM, +S1, +S2 - Additional Findings Additional findings: POLICY CH[employer] NSR TOTAL CHOL 200 LDL 128 ECHO NORMAL LV SIZE, WALL THICKNESS AND FUNCTION Assessment and Plan - Assessment and Plan (Free Text) Assessment: CHEST PAIN-CHEST PAIN FREE NOW AND ALL TROPONINS WERE NEGATIVE HYPERTENSION ANXIETY Plan: FOR PHARMACOLOGICAL STRESS TEST TODAY-THE PATIENT CAN BE DISCHARGED AFTER THE STRESS TEST IS COMPLETED AND THE RESULTS CAN BE FOLLOWED AN OUT PATIENT CONTINUE AMLODIPINE AND METOPROLOL
[2018-03-25] MEDS ORDERED: Aminophylline 25 mg/ml Inj ONE (10:40)
--- NOTE | 2018-03-25 10:54 | CP.PCM.DIS ---
<Kaya Barksdale - Last Filed: 03/25/18 17:31> Provider - Provider Date of Admission: 03/23/18 16:16 Attending physician: Adonis Dupree MD Consults: Cardiology: Dr. Hernández Time Spent in preparation of Discharge (in minutes): 20 Hospital Course - Lab Results Lab Results: Micro Results 03/23/18 23:30 Urine,Clean Catch Urine Culture - Final No Growth (<1,000 CFU/ML) 03/23/18 21:08 Blood Blood Culture - Preliminary NO GROWTH AFTER 24 HOURS Most Recent Lab Values WBC 5.5 K/uL (4.8-10.8) 03/25/18 04:20 RBC 4.13 Mil/uL (3.80-5.20) 03/25/18 04:20 Hgb 12.3 g/dL (12.0-16.0) 03/25/18 04:20 Hct 36.8 % (34.0-47.0) 03/25/18 04:20 MCV 89.1 fl (81.0-99.0) 03/25/18 04:20 MCH 29.8 pg (27.0-31.0) 03/25/18 04:20 MCHC 33.5 g/dL (33.0-37.0) 03/25/18 04:20 RDW 14.2 % (11.5-14.5) 03/25/18 04:20 Plt Count 216 K/uL (130-400) 03/25/18 04:20 MPV 8.4 fl (7.2-11.7) 03/25/18 04:20 Neut % (Auto) 55.4 % (50.0-75.0) 03/25/18 04:20 Lymph % (Auto) 29.6 % (20.0-40.0) 03/25/18 04:20 [place] % (Auto) 12.4 % (0.0-10.0) H 03/25/18 04:20 Eos % (Auto) 2.0 % (0.0-4.0) 03/25/18 04:20 Baso % (Auto) 0.6 % (0.0-2.0) 03/25/18 04:20 Neut # (Auto) 3.1 K/uL (1.8-7.0) 03/25/18 04:20 Lymph # (Auto) 1.6 K/uL (1.0-4.3) 03/25/18 04:20 [place] # (Auto) 0.7 K/uL (0.0-0.8) 03/25/18 04:20 Eos # (Auto) 0.1 K/uL (0.0-0.7) 03/25/18 04:20 Baso # (Auto) 0.0 K/uL (0.0-0.2) 03/25/18 04:20 Sodium 142 mmol/l (132-148) 03/25/18 04:20 Potassium 4.0 MMOL/L (3.6-5.0) 03/25/18 04:20 Chloride 104 mmol/L (98-107) 03/25/18 04:20 Carbon Dioxide 28 mmol/L (22-30) 03/25/18 04:20 Anion Gap 14 (10-20) 03/25/18 04:20 BUN 13 mg/dl (7-17) 03/25/18 04:20 Creatinine 0.9 mg/dl (0.7-1.2) 03/25/18 04:20 Est GFR ( Amer) > 60 03/25/18 04:20 Est GFR (Non-Af Amer) > 60 03/25/18 04:20 Random Glucose 94 mg/dL (65-105) 03/25/18 04:20 Calcium 8.9 mg/dL (8.4-10.2) 03/25/18 04:20 Total Bilirubin 1.1 mg/dl (0.2-1.3) 03/23/18 15:00 AST 36 U/L (14-36) D 03/23/18 15:00 ALT 36 U/L (9-52) 03/23/18 15:00 Alkaline Phosphatase 73 U/L (38-126) 03/23/18 15:00 Troponin I < 0.0120 ng/mL (0.00-0.120) 03/24/18 08:15 Total Protein 7.9 G/DL (6.3-8.2) 03/23/18 15:00 Albumin 4.2 g/dL (3.5-5.0) 03/23/18 15:00 Globulin 3.7 gm/dL (2.2-3.9) 03/23/18 15:00 Albumin/Globulin Ratio 1.1 (1.0-2.1) 03/23/18 15:00 Triglycerides 101 mg/DL (0-149) 03/25/18 04:20 Cholesterol 200 mg/dL (0-199) H 03/25/18 04:20 LDL Cholesterol Direct 128 mg/dL (0-129) 03/25/18 04:20 HDL Cholesterol 32 MG/DL (30-70) 03/25/18 04:20 Urine Color Yellow (YELLOW) 03/23/18 23:30 Urine Clarity Clear (Clear) 03/23/18 23:30 Urine pH 7.0 (5.0-8.0) 03/23/18 23:30 Ur Specific [place] 1.011 (1.003-1.030) 03/23/18 23:30 Urine Protein Negative mg/dL (NEGATIVE) 03/23/18 23:30 Urine Glucose (UA) Neg mg/dL (Normal) 03/23/18 23:30 Urine Ketones Negative mg/dL (NEGATIVE) 03/23/18 23:30 Urine Blood Negative (NEGATIVE) 03/23/18 23:30 Urine Nitrate Negative (NEGATIVE) 03/23/18 23:30 Urine Bilirubin Negative (NEGATIVE) 03/23/18 23:30 Urine Urobilinogen 0.2-1.0 mg/dL (0.2-1.0) 03/23/18 23:30 Ur Leukocyte Esterase Neg Nino/uL (Negative) 03/23/18 23:30 Urine RBC (Auto) 1 /hpf (0-3) 03/23/18 23:30 Urine Microscopic WBC < 1 /hpf (0-5) 03/23/18 23:30 Ur Squamous Epith Cells < 1 /hpf (0-5) 03/23/18 23:30 Urine Bacteria Rare (<OCC) 03/23/18 18:50 - Hospital Course Hospital Course: 67 YO female with PMHx anxiety, hypertension, GERD, arthritis, hx right breast cancer s/p lumpectomy was admitted for chest pain and initial concerns of pneumonia. Subsequent imaging was neg for pneumonia. Cardiology was consulted, ekg with t wave changes, troponin x 3 neg. Chest pain has currently resolved. Echo was done 03/24, EF 60-65% with normal ventricular function. Per cardiology, pt pending stress test today and cleared to be discharged post test. Pt d/c home with follow up with Dr. Hernández in [address] Dupree in 1 week. Cont home: Amlodipine Besylate (Norvasc) 10 mg PO DAILY ADREIN Aspirin (Aspirin Chewable) 81 mg PO DAILY ADRIEN Clonazepam (Klonopin) 0.5 mg PO TID PRN Famotidine (Pepcid) 40 mg PO DAILY ADRIEN Metoprolol Succinate (Toprol Xl) 50 mg PO DAILY ADRIEN Discharge Exam - Head Exam Head Exam: NORMAL INSPECTION - Eye Exam Eye Exam: EOMI - ENT Exam ENT Exam: Mucous Membranes Moist - Respiratory Exam Respiratory Exam: Chest Wall Tenderness (mild chest wall tenderness) - Cardiovascular Exam Cardiovascular Exam: REGULAR RHYTHM, +S1, +S2 - GI/Abdominal Exam GI & Abdominal Exam: Soft. absent: Normal Bowel Sounds, Tenderness - Neurological Exam Neurological exam: Alert, Oriented x3 - Psychiatric Exam Psychiatric exam: Normal Affect, Normal Mood - Skin Skin Exam: Dry, Intact, Normal Color, Warm Discharge Plan - Follow Up Plan Condition: FAIR Disposition: HOME/ ROUTINE Patient education suggested?: Yes Instructions: Chest Pain That Is Not Caused by the Heart (DC), Chest Pain (DC) , Heart Disease in Women (DC) Additional Instructions: follow up with Dr. Hernández in [address] Dupree in 1 week Please see make appointment with cardiology prior to seeing MD Referrals: Valente Hernández MD [Staff Provider] - Adonis Dupree MD [Family Provider] - <Adonis Dupree - Last Filed: 03/27/18 07:05> Provider - Provider Date of Admission: 03/23/18 16:16 Attending physician: Adonis Dupree MD Hospital Course - Lab Results Lab Results: Micro Results 03/23/18 21:08 Blood Blood Culture - Preliminary NO GROWTH AFTER 3 DAYS 03/23/18 23:30 Naris MRSA Culture (Admit) - Final MRSA NOT DETECTED 03/23/18 23:30 Urine,Clean Catch Urine Culture - Final No Growth (<1,000 CFU/ML) Most Recent Lab Values WBC 5.5 K/uL (4.8-10.8) 03/25/18 04:20 RBC 4.13 Mil/uL (3.80-5.20) 03/25/18 04:20 Hgb 12.3 g/dL (12.0-16.0) 03/25/18 04:20 Hct 36.8 % (34.0-47.0) 03/25/18 04:20 MCV 89.1 fl (81.0-99.0) 03/25/18 04:20 MCH 29.8 pg (27.0-31.0) 03/25/18 04:20 MCHC 33.5 g/dL (33.0-37.0) 03/25/18 04:20 RDW 14.2 % (11.5-14.5) 03/25/18 04:20 Plt Count 216 K/uL (130-400) 03/25/18 04:20 MPV 8.4 fl (7.2-11.7) 03/25/18 04:20 Neut % (Auto) 55.4 % (50.0-75.0) 03/25/18 04:20 Lymph % (Auto) 29.6 % (20.0-40.0) 03/25/18 04:20 [place] % (Auto) 12.4 % (0.0-10.0) H 03/25/18 04:20 Eos % (Auto) 2.0 % (0.0-4.0) 03/25/18 04:20 Baso % (Auto) 0.6 % (0.0-2.0) 03/25/18 04:20 Neut # (Auto) 3.1 K/uL (1.8-7.0) 03/25/18 04:20 Lymph # (Auto) 1.6 K/uL (1.0-4.3) 03/25/18 04:20 [place] # (Auto) 0.7 K/uL (0.0-0.8) 03/25/18 04:20 Eos # (Auto) 0.1 K/uL (0.0-0.7) 03/25/18 04:20 Baso # (Auto) 0.0 K/uL (0.0-0.2) 03/25/18 04:20 Sodium 142 mmol/l (132-148) 03/25/18 04:20 Potassium 4.0 MMOL/L (3.6-5.0) 03/25/18 04:20 Chloride 104 mmol/L (98-107) 03/25/18 04:20 Carbon Dioxide 28 mmol/L (22-30) 03/25/18 04:20 Anion Gap 14 (10-20) 03/25/18 04:20 BUN 13 mg/dl (7-17) 03/25/18 04:20 Creatinine 0.9 mg/dl (0.7-1.2) 03/25/18 04:20 Est GFR ( Amer) > 60 03/25/18 04:20 Est GFR (Non-Af Amer) > 60 03/25/18 04:20 Random Glucose 94 mg/dL (65-105) 03/25/18 04:20 Calcium 8.9 mg/dL (8.4-10.2) 03/25/18 04:20 Total Bilirubin 1.1 mg/dl (0.2-1.3) 03/23/18 15:00 AST 36 U/L (14-36) D 03/23/18 15:00 ALT 36 U/L (9-52) 03/23/18 15:00 Alkaline Phosphatase 73 U/L (38-126) 03/23/18 15:00 Troponin I < 0.0120 ng/mL (0.00-0.120) 03/24/18 08:15 Total Protein 7.9 G/DL (6.3-8.2) 03/23/18 15:00 Albumin 4.2 g/dL (3.5-5.0) 03/23/18 15:00 Globulin 3.7 gm/dL (2.2-3.9) 03/23/18 15:00 Albumin/Globulin Ratio 1.1 (1.0-2.1) 03/23/18 15:00 Triglycerides 101 mg/DL (0-149) 03/25/18 04:20 Cholesterol 200 mg/dL (0-199) H 03/25/18 04:20 LDL Cholesterol Direct 128 mg/dL (0-129) 03/25/18 04:20 HDL Cholesterol 32 MG/DL (30-70) 03/25/18 04:20 Urine Color Yellow (YELLOW) 03/23/18 23:30 Urine Clarity Clear (Clear) 03/23/18 23:30 Urine pH 7.0 (5.0-8.0) 03/23/18 23:30 Ur Specific [place] 1.011 (1.003-1.030) 03/23/18 23:30 Urine Protein Negative mg/dL (NEGATIVE) 03/23/18 23:30 Urine Glucose (UA) Neg mg/dL (Normal) 03/23/18 23:30 Urine Ketones Negative mg/dL (NEGATIVE) 03/23/18 23:30 Urine Blood Negative (NEGATIVE) 03/23/18 23:30 Urine Nitrate Negative (NEGATIVE) 03/23/18 23:30 Urine Bilirubin Negative (NEGATIVE) 03/23/18 23:30 Urine Urobilinogen 0.2-1.0 mg/dL (0.2-1.0) 03/23/18 23:30 Ur Leukocyte Esterase Neg Nino/uL (Negative) 03/23/18 23:30 Urine RBC (Auto) 1 /hpf (0-3) 03/23/18 23:30 Urine Microscopic WBC < 1 /hpf (0-5) 03/23/18 23:30 Ur Squamous Epith Cells < 1 /hpf (0-5) 03/23/18 23:30 Urine Bacteria Rare (<OCC) 03/23/18 18:50 Attending/Attestation - Attestation I have personally seen and examined this patient.: Yes I have fully participated in the care of the patient.: Yes I have reviewed all pertinent clinical information, including history, physical exam and plan: Yes
[2018-03-25 14:22] VITALS: RESP 12; TEMP 97.7
[2018-03-25] MEDS: Metoprolol Succinate 50 mg XL Tab PO SCH (14:25)
[2018-03-25] MEDS: Enoxaparin 40 mg Syringe SC SCH (14:27)
[2018-03-25 14:28] VITALS: BP 114/89; PULSE 89
--- NOTE | 2018-03-26 08:04 | CARD ---
APPROVED REPORT Protocol: LEXISCAN Test Type: LEXISCAN Medications: Tylenol 325mg, A mlodipine 10mg, ASA 81mg, Clonazepam 0.5mg, Lovenox 40mg, Pepcid 40mg, Motrinb 600mg, Metoprolol 50mg, Medical History: HYPERTENSION, HEMATOLOGICAL/ONCOLOGICAL, ARTHRITIS, GASTROESOPHAGEAL REFLUX, ANXIETY, FRACTURE RT WRIST 25 YRS AGO, UMBILICAL HERNIA REPAIR AT AGE 11, TONSILLECTOMY 3 YRS OF AGE, RT BREAST RECONSTRUCTION Target HR: 154 bpm Resting ECG: normal Resting Heart Rate: 82 bpm Resting Blood Pressure: 150/73mmHg submaximum (85%): 131 bpm TEST SUMMARY PREINJECTPRE-INJEC00:[id number]. [id number]. INJECTIONNS FLUSH00:[id number]/116.1. INJECTIONNUC MED00:[id number]/116.1. [id number]. PROCEDURE Pharmacologic stress testing was performed using 0.4mg per 5ml of regadenoson given intravenously over 7-10 seconds. POST EXERCISE Reason for Termination: Pharmacologic Stress Test Target HR: No Max HR: 92 bpm 75% of Maximum Predicted HR: 154 bpm Exercise duration: 00:42 min:sec, 0 Stage Exercise capacity: 1.0METs Max Blood Pressure: 159/96mmHg Blood Pressure response to exercise: normal resting BP - appropriate response Heart Rate response to exercise: appropriate Chest Pain: No, none Angina index: 0 Arrhythmia: Yes, ventricular premature beats-isolated ST Change: No, none Deviation: 0 mm Clinical Indications Under Appropriate Use Criteria This 67-year-old overweight hypertensive female with panic disorder was hospitalized with complaints of chest tightness and palpitations. An acute coronary syndrome was ruled out and the patient underwent this study to rule out evidence of coronary artery disease. Her resting electrocardiogram showed with nonspecific ST-T changes. There were no Q waves on her cardiogram. Her resting blood pressure was 150/70 mmHg. Cardiac auscultation did not reveal anything abnormal. Stress EKG Interpretation The patient underwent a resting myocardial scan after 10 mCi of sestamibi was given intravenously followed 45 minutes later by myocardial scanning. An hour and a half from the initial acquisition of sestamibi, the patient underwent an intravenous infusion of 0.4 mg of Lexiscan over 10 seconds followed immediately by 30 mCi of sestamibi given intravenously. The patient tolerated Lexiscan infusion without any chest pain but reported a sense of palpitations which lasted approximately 4 minutes. There were no electro-cardiographic changes congestive of myocardial ischemia. The patient left the stress lab symptom free and hemodynamically stable. 45 minutes later the patient underwent a second myocardial scan. The 2 sets of images for process. Gated and planar images were acquired. Tomographic images were examined. EXAM: Myocardial Perfusion REST/STRESS Image QualityGood Imaging Protocol The imaging protocol used to acquire images was Rest Tc-99m/stress Tc-99m 1 day Rest Spect myocardial perfusion imaging was performed in supine position 55 minutes following the injection of 10 mCi of Tc-99 Myoview. Time of rest injection: 8:35 Time of rest imagin:30 At peak stress, the patient was injected intravenously with 30mCi of Tc-99 tetrofosmin after an infusion time of minutes and seconds. Time of stress injection: 10:49 Time of stress imagin:45 Gated Stress Spect was performed 116 minutes after intravenous Tc-99 Myoview injection. The images were gated to evaluate regional wall motion and calculate ventricular ejection fraction. LV Perfusion The SPECT images demonstrative Ficken sestamibi uptake deficit involving the apical one third of inferolateral region on post Lexiscan images. This region on resting images showed normal sestamibi uptake. Half of anterior wall which on resting images also demonstrated normal sestamibi uptake. Remaining left ventricular wall segments demonstrated normal regional sestamibi uptake. Wall Motion Gated images showed a normal-sized left ventricle with normal regional wall motion and wall thickening. Her resting left ventricular ejection fraction was 64%. CONCLUSION 1. The images were suggestive of potentially ischemic myocardium involving apical one third of inferolateral region and apical half of anterior wall. (This finding could also represent obesity related artifact or motion artifact) her resting left ventricular ejection fraction was 64%.
== END 2018-03-25 15:38 | disposition home or self-care (01) ==
LOC: H.ER 14:19 → H.ERHOLD 16:16 → H.ICU/CCU 20:30
PROVIDERS: ADMIT Family Medicine; ATTEND Family Medicine
DX: M94.0 Chondrocostal junction syndrome [Tietze] (principal); R07.89 Other chest pain; F17.200 Nicotine dependence, unspecified, uncomplicated; F41.9 Anxiety disorder, unspecified; G89.29 Other chronic pain; I11.9 Hypertensive heart disease without heart failure; I49.3 Ventricular premature depolarization; K21.9 Gastro-esophageal reflux disease without esophagitis; Z79.899 Other long term (current) drug therapy; Z82.49 Family history of ischemic heart disease and other diseases of the circulatory system; Z85.3 Personal history of malignant neoplasm of breast; M25.562 Pain in left knee; M79.606 Pain in leg, unspecified; R00.0 Tachycardia, unspecified; R00.2 Palpitations; M17.12 Unilateral primary osteoarthritis, left knee
CPT/HCPCS: 71046; 73562; 78452; 80048; 80053; 80061; 81003; 84484; 85025; 87040; 87081; 87086; 93005; 93017; 93306; 93971; 96365; 96375; 96376; 99284; A9502; G0378; J0280; J0696; J1885; J2785